=== PATIENT | male | born 1965 | race Asian ===

== ENCOUNTER 2024-05-11 14:56 | Inpatient (IN) | payer MEDICARE, OTHER ==
[~2024-05-11] VITALS: Ht 172.7 cm; Wt 46.3 kg
[2024-05-11 15:29] LABS: BASOPHILS % (AUTO) 0.3 % (0.0-2.0); EOSINOPHILS # (AUTO) 0.2 K/uL (0.0-0.7); EOSINOPHILS % (AUTO) 3.3 % (0.0-6.0); HEMATOCRIT 35 % (39-51); HEMOGLOBIN 11.4 g/dL (13.5-17.5); LYMPHOCYTES # (AUTO) 1.8 K/uL (0.8-4.8); LYMPHOCYTES % (AUTO) 36.6 % (20.0-44.0); MEAN CORPUSCULAR HEMOGLOBIN 31 PG (26.0-33.0); MEAN CORPUSCULAR HGB CONC 33 g/dl (31.0-36.0); MEAN CORPUSCULAR VOLUME 94 fL (80-96); MONOCYTES # (AUTO) 0.4 K/uL (0.1-1.30); MONOCYTES % (AUTO) 8.1 % (2.0-12.0); NEUTROPHILS # (AUTO) 2.5 K/uL (1.8-8.9); NEUTROPHILS % (AUTO) 51.7 % (43.0-81.0); PLATELET COUNT (AUTO) 307 K/uL (150-450); RED BLOOD CELL COUNT(AUTO) 3.68 MIL/uL (4.5-6.0); WHITE BLOOD COUNT (AUTO) 4.8 K/uL (4.3-11.0)
[2024-05-11] MEDS: IV NS 0.9% 500 ML BAG IV ONE (15:29)
[2024-05-11] MEDS ORDERED: MORPHINE SULFATE INJ 2 MG/ML DISP.SYRIN IV PRN (15:30)
[2024-05-11] MEDS ORDERED: MAG HYDROX/AL HYDROX/SIMETH 30 ML UDC PO PRN (15:30)
[2024-05-11] MEDS ORDERED: ONDANSETRON HCL/PF 4 MG/2 ML VIAL IVP PRN (15:30)
[2024-05-11] MEDS ORDERED: ACETAMINOPHEN 325 MG TABLET PO PRN (15:30)
[2024-05-11] MEDS ORDERED: MAGNESIUM HYDROXIDE 30 ML UDC PO PRN (15:30)
[2024-05-11 15:36] LABS: CALCIUM, SERUM 9.3 mg/dL (8.5-10.1); CREATININE 1.1 mg/dL (0.6-1.3); POTASSIUM 4.1 mmol/L (3.5-5.1)
[2024-05-11] MEDS ORDERED: ACET325T53 PO (15:59)
[2024-05-11] MEDS ORDERED: BUPR-319 PO (15:59)
[2024-05-11] MEDS ORDERED: CLON1TAB12 PO (15:59)
[2024-05-11] MEDS ORDERED: METO25TA6 PO (15:59)
[2024-05-11] MEDS ORDERED: PANT40TA49 PO (15:59)
[2024-05-11] MEDS ORDERED: FENO145T21 PO (15:59)
[2024-05-11] MEDS ORDERED: RISP1SOL5 PO (15:59)
[2024-05-11] MEDS ORDERED: OMEG10006 PO (15:59)
[2024-05-11] MEDS ORDERED: VALB40CA2 PO (15:59)
[2024-05-11] MEDS ORDERED: FLUT16SP16 BNOSTRILS (15:59)
[2024-05-11] MEDS ORDERED: ESCI10TA PO (15:59)
[2024-05-11] MEDS ORDERED: OLAN2.5T3 PO (15:59)
[2024-05-11] MEDS ORDERED: LEVO75TA99 PO (15:59)
[2024-05-11] MEDS ORDERED: MULT-213 PO (15:59)
[2024-05-11] MEDS ORDERED: TRAZ-257 PO (15:59)
[2024-05-11] MEDS ORDERED: PALI156D IM (15:59)
[2024-05-11] MEDS ORDERED: LOSA100T31 PO (15:59)
[2024-05-11] MEDS ORDERED: QUET400T PO (15:59)
[2024-05-11] MEDS ORDERED: LORA10TA7 PO (15:59)
[2024-05-11] MEDS ORDERED: GABA600T12 PO (15:59)
[2024-05-11] MEDS ORDERED: CHOL100043 PO (15:59)
[2024-05-11] MEDS ORDERED: DIVA125C5 PO (15:59)
[2024-05-11 16:19] VITALS: O2SAT 97
[2024-05-11] MEDS ORDERED: LORATADINE 10 MG TABLET PO PRN (16:30)
[2024-05-11 17:04] LABS: THYROID STIMULATING HORMONE 0.32 uIU/mL (0.358-3.74)
[2024-05-11] MEDS: GABAPENTIN 300 MG CAPSULE PO SCH (17:42)
[2024-05-11] MEDS: DOCUSATE SODIUM LIQ 100 MG/10 ML UDC PO SCH (17:42)
[2024-05-11] MEDS: risperiDONE 1 MG TABLET PO SCH (17:43)
[2024-05-11] MEDS: DIVALPROEX SODIUM 125 MG CAP.SPRINK PO SCH (17:43)
[2024-05-11] MEDS: OLANZAPINE 5 MG TABLET PO SCH (17:43)
[2024-05-11] MEDS: clonazePAM 1 MG TABLET PO SCH (17:43)
[2024-05-11 20:00] VITALS: BP 105/77; TEMP 97.3; O2SAT 97
[2024-05-11] MEDS: HEPARIN SODIUM, PORCINE 5000 UNITS/1 ML VIAL SQ SCH (21:09)
[2024-05-11] MEDS: TRAZODONE 50 MG TABLET PO SCH (21:10)
[2024-05-11] MEDS: QUETIAPINE FUMARATE 100 MG TABLET PO SCH (21:11)
[2024-05-11] MEDS ORDERED: Medication Not On Formulary EA (Valbenazine Tosylate (Ingrezza) 40 MG) PO SCH (22:00)
[2024-05-12 06:35] LABS: BASOPHILS % (AUTO) 0.5 % (0.0-2.0); EOSINOPHILS # (AUTO) 0.2 K/uL (0.0-0.7); EOSINOPHILS % (AUTO) 4.7 % (0.0-6.0); HEMATOCRIT 32 % (39-51); HEMOGLOBIN 10.8 g/dL (13.5-17.5); LYMPHOCYTES # (AUTO) 2.7 K/uL (0.8-4.8); LYMPHOCYTES % (AUTO) 53.6 % (20.0-44.0); MEAN CORPUSCULAR HEMOGLOBIN 31 PG (26.0-33.0); MEAN CORPUSCULAR HGB CONC 33 g/dl (31.0-36.0); MEAN CORPUSCULAR VOLUME 92 fL (80-96); MONOCYTES # (AUTO) 0.5 K/uL (0.1-1.30); NEUTROPHILS # (AUTO) 1.6 K/uL (1.8-8.9); NEUTROPHILS % (AUTO) 32.2 % (43.0-81.0); PLATELET COUNT (AUTO) 301 K/uL (150-450); RED BLOOD CELL COUNT(AUTO) 3.51 MIL/uL (4.5-6.0); RED CELL DISTRIBUTION WIDTH 15.2 % (11.5-15.0)
[2024-05-12 06:47] LABS: ALBUMIN 3.2 g/dL (3.4-5.0); BILIRUBIN,TOTAL 0.3 mg/dL (0.2-1.0); CALCIUM, SERUM 9.6 mg/dL (8.5-10.1); PHOSPHORUS 3.5 mg/dL (2.5-4.9); POTASSIUM 3.9 mmol/L (3.5-5.1); TOTAL PROTEIN, SERUM 7.1 g/dL (6.4-8.2)
[2024-05-12 08:00] VITALS: BP 123/89; TEMP 97.7; O2SAT 99
[2024-05-12] MEDS: PANTOPRAZOLE 40 MG TABLET.DR PO SCH (08:41)
[2024-05-12] MEDS: LEVOTHYROXINE SODIUM 75 MCG TABLET PO SCH (08:41)
[2024-05-12] MEDS: FLUTICASONE PROPIONATE 16 GM BOTTLE NS SCH (09:35)
[2024-05-12] MEDS: LOSARTAN POTASSIUM 50 MG TABLET PO SCH (09:36)
[2024-05-12] MEDS: ESCITALOPRAM OXALATE (10 MG) 10 MG TABLET PO SCH (09:37)
[2024-05-12] MEDS: METOPROLOL TARTRATE 25 MG TABLET PO SCH (09:37)
[2024-05-12] MEDS: POLYETHYLENE GLYCOL 3350 17 GM POWD.PACK PO SCH (09:38)
[2024-05-12] MEDS: CHOLECALCIFEROL 1,000 UNIT TABLET (VIT D3) PO SCH (09:39)
[2024-05-12] MEDS: BUPROPION XL 150 MG TAB.ER.24 PO SCH (09:39)
[2024-05-12] MEDS: FENOFIBRATE NANOCRYS (145 MG) 145 MG TABLET PO SCH (09:43)
[2024-05-12 15:36] VITALS: BP 77/60
[2024-05-12 16:00] VITALS: BP 82/60; TEMP 98; O2SAT 100
[2024-05-12] MEDS: IV NS 0.9% 1,000 ML IV STA (16:20)
[2024-05-12 20:00] VITALS: BP 107/76; TEMP 97.2; O2SAT 100
[2024-05-13 08:30] VITALS: BP 105/73; TEMP 97.9; O2SAT 99
[2024-05-13 16:00] VITALS: BP 99/69; TEMP 97.9; O2SAT 98
[2024-05-13 20:00] VITALS: BP 109/68; TEMP 97.5; O2SAT 98
[2024-05-14 08:00] VITALS: BP 85/52; TEMP 97.9; O2SAT 97
== END 2024-05-14 13:15 | DRG 641 ==
LOC: ER 15:00 → MED 16:16
PROVIDERS: ADMIT Internal Medicine; ATTEND Internal Medicine
DX: R62.7 Adult failure to thrive (principal); Z68.1 Body mass index [BMI] 19.9 or less, adult; E44.0 Moderate protein-calorie malnutrition; J44.9 Chronic obstructive pulmonary disease, unspecified; R13.10 Dysphagia, unspecified; E03.9 Hypothyroidism, unspecified; E11.9 Type 2 diabetes mellitus without complications; E78.5 Hyperlipidemia, unspecified; F41.9 Anxiety disorder, unspecified; M19.90 Unspecified osteoarthritis, unspecified site; I10 Essential (primary) hypertension; D64.9 Anemia, unspecified; F25.1 Schizoaffective disorder, depressive type; Z79.899 Other long term (current) drug therapy; Z79.51 Long term (current) use of inhaled steroids; R63.0 Anorexia; E88.09 Other disorders of plasma-protein metabolism, not elsewhere classified
CPT/HCPCS: 36415; 80048-TC; 80053-TC; 80061-TC; 83735-TC; 84100-TC; 84439-TC; 84443-TC; 85025-TC; 92526; 92611-TC; A4223; G0378; J1644; J7030; J7040